=== PATIENT | female | born 1950 | race Caucasian/White ===

== ENCOUNTER 2018-03-09 19:43 | Inpatient (IN) | payer MEDICARE, OTHER ==
[2018-03-09 21:31] VITALS: BP 161/69
[2018-03-09] MEDS ORDERED: Magnesium Hydroxide (MOM) 30 mL UDC PO PRN (21:43)
[2018-03-09] MEDS ORDERED: Maalox 30 mL Cup PO PRN (21:43)
[2018-03-10] MEDS: Multivitamin Tab PO SCH (13:41)
--- NOTE | 2018-03-10 22:34 | History & Physical ---
ADMIT DATE: 03/09/2018 HISTORY OF PRESENT ILLNESS: The patient is a 68-year-old female with long history of hypertension, COPD, dementia, psychosis, admitted to [facility] under Dr. Yepez's service. The patient denies any chest pain, shortness of breath, nausea, vomiting, fever or chills. PAST MEDICAL HISTORY: Significant for hypertension, COPD, degenerative joint disease, dementia. PAST SURGICAL HISTORY: No recent surgery. ALLERGIES: None. MEDICATIONS: Follow admission reconciliation. SOCIAL HISTORY: Chronic smoker. No alcohol or drugs. FAMILY HISTORY: Noncontributory. REVIEW OF SYSTEMS: RENAL SYSTEM: No history of chronic renal disorder. CARDIOVASCULAR SYSTEM: No coronary artery disease. She has history of hypertension. ENDOCRINE SYSTEM: No diabetes or thyroid problem. GASTROINTESTINAL SYSTEM: No upper or lower GI bleed. NEUROLOGICAL SYSTEM: No seizure disorder. MUSCULOSKELETAL: No muscular dystrophy. HEMATOLOGIC SYSTEM: No bleeding tendencies. RESPIRATORY SYSTEM: She has history of COPD. GENITOURINARY SYSTEM: No dysuria or hematuria. PHYSICAL EXAMINATION: GENERAL: She is awake, alert, confused. VITAL SIGNS: Temperature 97.4, heart rate 87, blood pressure 119/77. HEENT: Normocephalic. Pupils reactive to light and accommodation. Sclerae clear. NECK: Supple. Negative for lymphadenopathy, JVD or bruit. CHEST: Entry of air bilaterally diminished throughout. HEART: S1, S2 normal. ABDOMEN: Soft, bowel sounds positive. EXTREMITIES: No edema. NEUROLOGICAL: She is awake, alert, not coherent. She has no focal motor or sensory deficits. Cranial nerves 2-12 are intact. ASSESSMENT: 1. Hypertension. 2. Chronic obstructive pulmonary disease. 3. Degenerative joint disease. 4. Dementia. 5. Psychosis. PLAN: The patient in the hospital under Dr. Yepez's service. Medical problems addressed during hospitalization psychosis. Medical problems addressed at discharge COPD and hypertension. The patient is medically stable for activity. Thank you Dr. Yepez for asking me to see your patient. JOB# [id number]
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
--- NOTE | 2018-03-11 06:19 | Psychiatric Evaluation ---
DATE OF SERVICE: 03/09/2018 IDENTIFYING DATA: The patient is a 68-year-old woman admitted from [facility] in view of her psychosis. CHIEF COMPLAINT: "I cannot talk much about it now, I am tired." HISTORY OF PRESENT ILLNESS: This is the first psychiatric hospitalization to [facility] for this 68-year-old woman, who is reported to have been diagnosed to have schizophrenia, chronic paranoid type. The patient is reported to be very resistive to care and has been brought by the paramedics. The patient is reported to have been refused to get into her room and has been wandering on the unit. The patient is extremely paranoid at this time. The patient's coping skills at this time are noted to be poor. Sleep and appetite are also noted to be very poor. Review of the chart indicated that the patient has been on Zyprexa, complains of the pain medication is noted to be questionable. PAST PSYCHIATRIC HISTORY: Details are not known. MEDICAL HISTORY: Physical examination is requested to be done by Dr. Larios. SUBSTANCE ABUSE HISTORY: None. PHYSICAL OR SEXUAL ABUSE HISTORY: None. LEGAL PROBLEMS: None at this time. STRENGTH AND ASSETS: The patient is motivated. MENTAL STATUS EXAMINATION: The patient is a 68-year-old woman looking her stated age, superficially cooperative. Eye contact is poor. Mood is noted to be irritable. Affect is constricted. Insight and judgment at this time are noted to be very much impaired. Impulse control seems to be poor. Coping skills are also noted to be very poor. The patient has been having difficult time to cope with the stress. The patient is paranoid and then pacing most of the time. The patient is denying any command hallucinations. The patient's behavior is a danger to self at this time and the patient is gravely disabled. DIAGNOSTIC IMPRESSION: AXIS I: Schizophrenia, chronic paranoid type. AXIS II: None. AXIS III: As per Dr. Larios. IMMEDIATE TREATMENT PLAN: The patient is going to be observed on the inpatient unit, provided with supportive psychotherapy. Once stabilized, the patient is going to be discharged to [facility] to be followed up on an outpatient basis. JOB# [id number]
[2018-03-11] MEDS: Multivitamin Tab PO SCH (09:16)
--- NOTE | 2018-03-11 09:48 | General Progress Note ---
Subjective - Review of Systems Service Date: 03/11/18 Subjective: sitting comfortably in chair confused no distress Objective - Physical Exam Vitals and I&O: Vital Signs Temp 98.4 F 03/11/18 06:05 Pulse 84 03/11/18 06:05 Resp 18 03/11/18 06:05 BP 141/79 03/11/18 06:05 Pulse Ox 93 03/11/18 06:05 Intake & Output 03/10/18 03/11/18 03/11/18 18:59 06:59 18:59 Intake Total 960 Balance 960 Intake: Oral 960 Other: # Voids 3 # Bowel Movements 1 Active Medications: Current Medications Acetaminophen (Tylenol) 650 mg PO Q4HR PRN PRN Reason: Mild Pain / Temp above 100 Stop: 05/08/18 21:42 Al Hydrox/Mg Hydrox/Simethicone (Maalox) 30 ml PO Q4HR PRN PRN Reason: GI DISTRESS Stop: 05/08/18 21:42 Donepezil HCl (Aricept) 5 mg PO DAILY SVETLANA Stop: 05/11/18 08:59 Lisinopril (Zestril) 10 mg PO DAILY SVETLANA Stop: 05/09/18 10:59 Last Admin: 03/10/18 13:41 Dose: Not Given Lorazepam (Ativan) 0.5 mg PO Q4H PRN; Protocol PRN Reason: Anxiety Stop: 05/08/18 21:42 Magnesium Hydroxide (Milk Of Magnesia) 30 ml PO HS PRN PRN Reason: Constipation Memantine (Namenda) 5 mg PO BID SVETLANA Stop: 05/10/18 16:59 Multivitamins/Vitamin C (Theragran) 1 tab PO DAILY SVETLANA Stop: 05/09/18 08:59 Last Admin: 03/10/18 13:41 Dose: Not Given Olanzapine (Zyprexa) 5 mg PO HS SVETLANA; Protocol Stop: 05/10/18 20:59 Zolpidem Tartrate (Ambien) 5 mg PO HS PRN PRN Reason: Insomnia Stop: 05/08/18 21:42 General: No acute distress HEENT: Atraumatic, PERRLA Neck: Supple, JVD Cardiovascular: Regular rate, Normal S1, Normal S2 Lungs: Clear to auscultation Abdomen: Bowel sounds, Soft Assessment/Plan - Assessment Assessment: dementia HTN COPD DJD - Plan Plan: continue current treatment Nutritional Asmnt/Malnutr-PDOC - Dietary Evaluation Malnutrition Findings (Please click <Entered> for more info): Nutritional Asmnt/Malnutrition Start: 03/10/18 14: 37 Text: Status: Complete Freq: Protocol: Document 03/10/18 14:38 JANUSZ (Rec: 03/10/18 14:49 [email or web address]) Nutritional Asmnt/Malnutrition Patient General Information Nutritional Screening High Risk Diagnosis psychosis Pertinent Medical Hx/Surgical Hx No H&P available as of now. Per nursing note, pt has history of bipolar disorder, ETOH abuse, smoker, HTN Subjective Information Pt standing in hallway at time of visit. Pt was alert and oriented; states she dislikes carbonated or diet beverages. No PO intake noted at this time; pt states she only ate a small amount of breakfast today. BMI 15.4 noted. Current Diet Order/ Nutrition Support regular Pertinent Medications maalox, MOM, theragran Pertinent Labs no current lab results Nutritional Hx/Data Height 1.55 m Height (Calculated Centimeters) 154.9 Current Weight (lbs) 36.922 kg Weight (Calculated Kilograms) 36.9 Weight (Calculated Grams) 35224.4 [place] Body Weight 105 lb Body Mass Index (BMI) 15.3 Weight Status Underweight GI Symptoms GI Symptoms None Last BM none noted Difficult in: None Food Allergies No Skin Integrity/Comment: cata, sheri 20 Estimated Nutritional Goals BEE in Kcals: Using Current wt Calories/Kcals/Kg 30-35 Kcals Calculated 6248-9350 Protein: Using Current wt Protein g/k.2-1.4 Protein Calculated 44-52g Fluid: ml 5024-3773 (1 ml/kcal) Nutritional Problem 1. Problem Problem Underweight Etiology possible poor PO intake Signs/Symptoms: BMI 15.4 Intervention/Recommendation Comments 1. Continue with regular diet as ordered. 2. If PO intake <75%, consider adding nutrition supplement for added kcals 2. Monitor PO intake, wt, labs and skin integrity 3. F/U as moderate risk in 3-5 days, 03/13-03/15; PO check 03/13 Expected Outcomes/Goals Expected Outcomes/Goals 1. PO intake to meet at least 75% of nutritional needs 2. Wt gain or stability, skin to remain intact, and nutrition related labs to approach normal limits Rosalinewed by Tatyana Stone RD
--- NOTE | 2018-03-11 21:39 | Progress Notes ---
DATE: 03/11/2018 SUBJECTIVE: Staff was spoken to. The patient is interviewed. Mood is noted to be irritable. Affect is constricted. The patient is paranoid and is going on a tangent. The patient's insight and judgment at this time are noted to be still impaired. Impulse control is noted to be poor. Coping skills are also noted to be very poor. The patient has been having difficult time to cope with the stress. The patient is pacing most of the time on the unit. When asked what happened for her to be brought to [facility], she is stating that there has been a Halloween libertarian that is going on and that is the reason why she has been brought over there. ASSESSMENT: The patient is grossly psychotic and impulsive and is not ready to be discharged to a lower level of care. PLAN: To start the Aricept and Namenda along with the Zyprexa and follow the patient with the supportive therapy. Please note that the patient is not ready to be discharged to a lower level of care yet. JOB# [id number]
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
[2018-03-12] MEDS: Multivitamin Tab PO SCH (09:16)
--- NOTE | 2018-03-12 11:27 | Progress Notes ---
DATE: 03/12/2018 PSYCHIATRIC PROGRESS NOTE PROGRESS ON THE UNIT: Staff was spoken to. The patient is interviewed. Mood is noted to be irritable. Affect is constricted. The patient is going on a tangent. The patient is stating that she should not be on any medications. The patient has been placed on 5 mg of olanzapine. The patient is pacing on the unit. The patient's short-term and long-term memory are noted to be impaired. ASSESSMENT: The patient is still psychotic. PLAN: To continue the patient with current medications. I encouraged the patient to verbalize the concerns rather than to act out. JOB# [id number]
--- NOTE | 2018-03-12 18:38 | General Progress Note ---
Subjective - Review of Systems Service Date: 03/12/18 Subjective: sitting comfortably in chair confused no distress Objective - Physical Exam Vitals and I&O: Vital Signs Temp 97.8 F 03/12/18 14:00 Pulse 91 03/12/18 14:00 Resp 20 03/12/18 14:00 BP 119/87 03/12/18 14:00 Pulse Ox 97 03/12/18 14:00 Intake & Output 03/11/18 03/12/18 03/12/18 18:59 06:59 18:59 Intake Total 950 950 Balance 950 950 Intake: Oral 950 950 Other: # Voids 4 3 3 # Bowel Movements 0 0 0 Active Medications: Current Medications Acetaminophen (Tylenol) 650 mg PO Q4HR PRN PRN Reason: Mild Pain / Temp above 100 Stop: 05/08/18 21:42 Al Hydrox/Mg Hydrox/Simethicone (Maalox) 30 ml PO Q4HR PRN PRN Reason: GI DISTRESS Stop: 05/08/18 21:42 Donepezil HCl (Aricept) 5 mg PO DAILY [facility] Stop: 05/11/18 08:59 Last Admin: 03/12/18 09:16 Dose: Not Given Lisinopril (Zestril) 10 mg PO DAILY SVETLANA Stop: 05/09/18 10:59 Last Admin: 03/12/18 09:16 Dose: Not Given Lorazepam (Ativan) 0.5 mg PO Q4H PRN; Protocol PRN Reason: Anxiety Stop: 05/08/18 21:42 Magnesium Hydroxide (Milk Of Magnesia) 30 ml PO HS PRN PRN Reason: Constipation Memantine (Namenda) 5 mg PO BID SVETLANA Stop: 05/10/18 16:59 Last Admin: 03/12/18 16:39 Dose: Not Given Multivitamins/Vitamin C (Theragran) 1 tab PO DAILY SVETLANA Stop: 05/09/18 08:59 Last Admin: 03/12/18 09:16 Dose: Not Given Olanzapine (Zyprexa) 5 mg PO HS SVETLANA; Protocol Stop: 05/10/18 20:59 Last Admin: 03/11/18 21:06 Dose: Not Given Zolpidem Tartrate (Ambien) 5 mg PO HS PRN PRN Reason: Insomnia Stop: 05/08/18 21:42 General: No acute distress HEENT: Atraumatic, PERRLA Neck: Supple, JVD Cardiovascular: Regular rate, Normal S1, Normal S2 Lungs: Clear to auscultation Abdomen: Bowel sounds, Soft Assessment/Plan - Assessment Assessment: dementia HTN COPD DJD - Plan Plan: continue current treatment Nutritional Asmnt/Malnutr-PDOC - Dietary Evaluation Malnutrition Findings (Please click <Entered> for more info): Nutritional Asmnt/Malnutrition Start: 03/10/18 14: 37 Text: Status: Complete Freq: Protocol: Document 03/10/18 14:38 JANUSZ (Rec: 03/10/18 14:49 [email or web address]) Nutritional Asmnt/Malnutrition Patient General Information Nutritional Screening High Risk Diagnosis psychosis Pertinent Medical Hx/Surgical Hx No H&P available as of now. Per nursing note, pt has history of bipolar disorder, ETOH abuse, smoker, HTN Subjective Information Pt standing in hallway at time of visit. Pt was alert and oriented; states she dislikes carbonated or diet beverages. No PO intake noted at this time; pt states she only ate a small amount of breakfast today. BMI 15.4 noted. Current Diet Order/ Nutrition Support regular Pertinent Medications maalox, MOM, theragran Pertinent Labs no current lab results Nutritional Hx/Data Height 1.55 m Height (Calculated Centimeters) 154.9 Current Weight (lbs) 36.922 kg Weight (Calculated Kilograms) 36.9 Weight (Calculated Grams) 90173.4 [place] Body Weight 105 lb Body Mass Index (BMI) 15.3 Weight Status Underweight GI Symptoms GI Symptoms None Last BM none noted Difficult in: None Food Allergies No Skin Integrity/Comment: sheri ivy Estimated Nutritional Goals BEE in Kcals: Using Current wt Calories/Kcals/Kg 30-35 Kcals Calculated 7185-1871 Protein: Using Current wt Protein g/k.2-1.4 Protein Calculated 44-52g Fluid: ml 1730-7795 (1 ml/kcal) Nutritional Problem 1. Problem Problem Underweight Etiology possible poor PO intake Signs/Symptoms: BMI 15.4 Intervention/Recommendation Comments 1. Continue with regular diet as ordered. 2. If PO intake <75%, consider adding nutrition supplement for added kcals 2. Monitor PO intake, wt, labs and skin integrity 3. F/U as moderate risk in 3-5 days, 03/13-03/15; PO check 03/13 Expected Outcomes/Goals Expected Outcomes/Goals 1. PO intake to meet at least 75% of nutritional needs 2. Wt gain or stability, skin to remain intact, and nutrition related labs to approach normal limits Reiewed by Tatyana Stone RD
[2018-03-13] MEDS: Multivitamin Tab PO SCH (09:33)
--- NOTE | 2018-03-13 19:31 | Internal Medicine Prog Note ---
Internal Medicine Subjective - Subjective Service Date: 03/13/18 Patient seen and examined:: with staff Patient is:: awake, verbal, in bed, talking Per staff patient has:: no adverse event Internal Medicine Objective - Physical Exam Vitals and I&O: Vital Signs Temp 98.2 F 03/13/18 14:00 Pulse 71 03/13/18 14:00 Resp 20 03/13/18 14:00 BP 159/71 03/13/18 14:00 Pulse Ox 97 03/13/18 14:00 Intake & Output 03/13/18 03/13/18 03/14/18 06:59 18:59 06:59 Intake Total 240 800 Balance 240 800 Intake: Oral 240 800 Other: # Voids 1 3 # Bowel Movements 1 Active Medications: Current Medications Acetaminophen (Tylenol) 650 mg PO Q4HR PRN PRN Reason: Mild Pain / Temp above 100 Stop: 05/08/18 21:42 Al Hydrox/Mg Hydrox/Simethicone (Maalox) 30 ml PO Q4HR PRN PRN Reason: GI DISTRESS Stop: 05/08/18 21:42 Donepezil HCl (Aricept) 5 mg PO DAILY SVETLANA Stop: 05/11/18 08:59 Last Admin: 03/13/18 09:32 Dose: Not Given Lisinopril (Zestril) 10 mg PO DAILY SVETLANA Stop: 05/09/18 10:59 Last Admin: 03/13/18 09:32 Dose: Not Given Lorazepam (Ativan) 0.5 mg PO Q4H PRN; Protocol PRN Reason: Anxiety Stop: 05/08/18 21:42 Magnesium Hydroxide (Milk Of Magnesia) 30 ml PO HS PRN PRN Reason: Constipation Memantine (Namenda) 5 mg PO BID SVETLANA Stop: 05/10/18 16:59 Last Admin: 03/13/18 16:24 Dose: Not Given Multivitamins/Vitamin C (Theragran) 1 tab PO DAILY SVETLANA Stop: 05/09/18 08:59 Last Admin: 03/13/18 09:33 Dose: Not Given Olanzapine (Zyprexa) 5 mg PO HS SVETLANA; Protocol Stop: 05/10/18 20:59 Last Admin: 03/12/18 20:57 Dose: Not Given Zolpidem Tartrate (Ambien) 5 mg PO HS PRN PRN Reason: Insomnia Stop: 05/08/18 21:42 General: demented HEENT: NC/AT, PERRLA, EOMI, anicteric sclerae, throat clear Neck: Supple, No JVD, No thyromegaly, +2 carotid pulse wo bruit, No LAD Lungs: CTAB Cardiovascular: RRR, Normal S1, Normal S2, without murmur Abdomen: soft, non-tender, non-distended Extremities: clear Neurological: no change Internal Medicine Assmt/Plan - Assessment Assessment: 1.HTN. 2.COPD. 3.DJD. 4.DEMENTIA 5.PSYCHOSIS. - Plan Plan: CONTINUE ON CURRENT MEDICATION AND DIET. Nutritional Asmnt/Malnutr-PDOC - Dietary Evaluation Malnutrition Findings (Please click <Entered> for more info): Nutritional Asmnt/Malnutrition Start: 03/10/18 14: 37 Text: Status: Complete Freq: Protocol: Document 03/10/18 14:38 JANUSZ (Rec: 03/10/18 14:49 [email or web address]) Nutritional Asmnt/Malnutrition Patient General Information Nutritional Screening High Risk Diagnosis psychosis Pertinent Medical Hx/Surgical Hx No H&P available as of now. Per nursing note, pt has history of bipolar disorder, ETOH abuse, smoker, HTN Subjective Information Pt standing in hallway at time of visit. Pt was alert and oriented; states she dislikes carbonated or diet beverages. No PO intake noted at this time; pt states she only ate a small amount of breakfast today. BMI 15.4 noted. Current Diet Order/ Nutrition Support regular Pertinent Medications maalox, MOM, theragran Pertinent Labs no current lab results Nutritional Hx/Data Height 1.55 m Height (Calculated Centimeters) 154.9 Current Weight (lbs) 36.922 kg Weight (Calculated Kilograms) 36.9 Weight (Calculated Grams) 48114.4 [place] Body Weight 105 lb Body Mass Index (BMI) 15.3 Weight Status Underweight GI Symptoms GI Symptoms None Last BM none noted Difficult in: None Food Allergies No Skin Integrity/Comment: sheri ivy 20 Estimated Nutritional Goals BEE in Kcals: Using Current wt Calories/Kcals/Kg 30-35 Kcals Calculated 0166-0232 Protein: Using Current wt Protein g/k.2-1.4 Protein Calculated 44-52g Fluid: ml 0703-9934 (1 ml/kcal) Nutritional Problem 1. Problem Problem Underweight Etiology possible poor PO intake Signs/Symptoms: BMI 15.4 Intervention/Recommendation Comments 1. Continue with regular diet as ordered. 2. If PO intake <75%, consider adding nutrition supplement for added kcals 2. Monitor PO intake, wt, labs and skin integrity 3. F/U as moderate risk in 3-5 days, 03/13-03/15; PO check 03/13 Expected Outcomes/Goals Expected Outcomes/Goals 1. PO intake to meet at least 75% of nutritional needs 2. Wt gain or stability, skin to remain intact, and nutrition related labs to approach normal limits Reiewed by Tatyana Stone RD
--- NOTE | 2018-03-13 23:35 | Progress Notes ---
DATE: 03/13/2018 SUBJECTIVE: Staff was spoken to. The patient is interviewed. Mood is noted to be irritable. Affect is constricted. The patient has been displaying confabulation. The patient has not been able to provide detailed information where she is going to be staying if she were going to be discharged. When asked about any family members, the patient is reporting that she has many family members, but she cannot get their names and the patient has been demented and paranoid and gravely disabled. PLAN: To continue the patient on the current medications and followup. JOB# [id number]
[2018-03-14] MEDS: Multivitamin Tab PO SCH (09:17)
--- NOTE | 2018-03-14 22:16 | Internal Medicine Prog Note ---
Internal Medicine Subjective - Subjective Service Date: 03/14/18 Patient seen and examined:: with staff Patient is:: awake, verbal, in bed, talking Per staff patient has:: no adverse event Internal Medicine Objective - Physical Exam Vitals and I&O: Vital Signs Temp 0 F 03/14/18 20:23 Pulse 70 03/14/18 14:00 Resp 18 03/14/18 14:00 BP 135/86 03/14/18 14:00 Pulse Ox 97 03/14/18 14:00 Intake & Output 03/14/18 03/14/18 03/15/18 06:59 18:59 06:59 Intake Total 180 800 120 Balance 180 800 120 Intake: Oral 180 800 120 Other: # Voids 3 3 3 # Bowel Movements 0 1 0 Active Medications: Current Medications Acetaminophen (Tylenol) 650 mg PO Q4HR PRN PRN Reason: Mild Pain / Temp above 100 Stop: 05/08/18 21:42 Al Hydrox/Mg Hydrox/Simethicone (Maalox) 30 ml PO Q4HR PRN PRN Reason: GI DISTRESS Stop: 05/08/18 21:42 Donepezil HCl (Aricept) 5 mg PO DAILY SVETLANA Stop: 05/11/18 08:59 Last Admin: 03/14/18 09:16 Dose: Not Given Lisinopril (Zestril) 10 mg PO DAILY SVETLANA Stop: 05/09/18 10:59 Last Admin: 03/14/18 09:16 Dose: Not Given Lorazepam (Ativan) 0.5 mg PO Q4H PRN; Protocol PRN Reason: Anxiety Stop: 05/08/18 21:42 Magnesium Hydroxide (Milk Of Magnesia) 30 ml PO HS PRN PRN Reason: Constipation Memantine (Namenda) 5 mg PO BID SVETLANA Stop: 05/10/18 16:59 Last Admin: 03/14/18 17:18 Dose: Not Given Multivitamins/Vitamin C (Theragran) 1 tab PO DAILY SVETLANA Stop: 05/09/18 08:59 Last Admin: 03/14/18 09:17 Dose: Not Given Olanzapine (Zyprexa) 5 mg PO HS SVETLANA; Protocol Stop: 05/10/18 20:59 Last Admin: 03/14/18 20:55 Dose: Not Given Zolpidem Tartrate (Ambien) 5 mg PO HS PRN PRN Reason: Insomnia Stop: 05/08/18 21:42 General: demented HEENT: NC/AT, PERRLA, EOMI, anicteric sclerae, throat clear Neck: Supple, No JVD, No thyromegaly, +2 carotid pulse wo bruit, No LAD Lungs: CTAB Cardiovascular: RRR, Normal S1, Normal S2, without murmur Abdomen: soft, non-tender, non-distended Extremities: clear Neurological: no change Internal Medicine Assmt/Plan - Assessment Assessment: 1.HTN. 2.COPD. 3.DJD. 4.DEMENTIA 5.PSYCHOSIS. - Plan Plan: CONTINUE ON CURRENT MEDICATION AND DIET. Nutritional Asmnt/Malnutr-PDOC - Dietary Evaluation Malnutrition Findings (Please click <Entered> for more info): Nutritional Asmnt/Malnutrition Start: 03/10/18 14: 37 Text: Status: Complete Freq: Protocol: Document 03/10/18 14:38 JANUSZ (Rec: 03/10/18 14:49 [email or web address]) Nutritional Asmnt/Malnutrition Patient General Information Nutritional Screening High Risk Diagnosis psychosis Pertinent Medical Hx/Surgical Hx No H&P available as of now. Per nursing note, pt has history of bipolar disorder, ETOH abuse, smoker, HTN Subjective Information Pt standing in hallway at time of visit. Pt was alert and oriented; states she dislikes carbonated or diet beverages. No PO intake noted at this time; pt states she only ate a small amount of breakfast today. BMI 15.4 noted. Current Diet Order/ Nutrition Support regular Pertinent Medications maalox, MOM, theragran Pertinent Labs no current lab results Nutritional Hx/Data Height 1.55 m Height (Calculated Centimeters) 154.9 Current Weight (lbs) 36.922 kg Weight (Calculated Kilograms) 36.9 Weight (Calculated Grams) 58519.4 [place] Body Weight 105 lb Body Mass Index (BMI) 15.3 Weight Status Underweight GI Symptoms GI Symptoms None Last BM none noted Difficult in: None Food Allergies No Skin Integrity/Comment: sheri ivy 20 Estimated Nutritional Goals BEE in Kcals: Using Current wt Calories/Kcals/Kg 30-35 Kcals Calculated 6969-9824 Protein: Using Current wt Protein g/k.2-1.4 Protein Calculated 44-52g Fluid: ml 6402-6520 (1 ml/kcal) Nutritional Problem 1. Problem Problem Underweight Etiology possible poor PO intake Signs/Symptoms: BMI 15.4 Intervention/Recommendation Comments 1. Continue with regular diet as ordered. 2. If PO intake <75%, consider adding nutrition supplement for added kcals 2. Monitor PO intake, wt, labs and skin integrity 3. F/U as moderate risk in 3-5 days, 03/13-03/15; PO check 03/13 Expected Outcomes/Goals Expected Outcomes/Goals 1. PO intake to meet at least 75% of nutritional needs 2. Wt gain or stability, skin to remain intact, and nutrition related labs to approach normal limits Reiewed by Tatyana Stone RD
--- NOTE | 2018-03-15 01:33 | Progress Notes ---
DATE: 03/14/2018 SUBJECTIVE: Staff was spoken to. The patient is interviewed. Mood is noted to be irritable. Affect is constricted. Insight and judgment are noted to be still impaired. Impulse control is noted to be limited. Coping skills are noted to be limited. The patient has been having difficult time to cope with the stress. ASSESSMENT: The patient is still paranoid and demented. PLAN: To continue the patient with the supportive therapy and work with the manager of case with regard to placement. JOB# [id number]
[2018-03-15] MEDS: Multivitamin Tab PO SCH (09:20)
--- NOTE | 2018-03-15 21:06 | Internal Medicine Prog Note ---
Internal Medicine Subjective - Subjective Service Date: 03/15/18 Patient seen and examined:: with staff Patient is:: awake, verbal, in bed, talking Per staff patient has:: no adverse event Internal Medicine Objective - Physical Exam Vitals and I&O: Vital Signs Temp 98.7 F 03/15/18 20:00 Pulse 93 03/15/18 20:00 Resp 19 03/15/18 20:00 BP 113/77 03/15/18 20:00 Pulse Ox 93 03/15/18 20:00 Intake & Output 03/15/18 03/15/18 03/16/18 06:59 18:59 06:59 Intake Total 120 1500 Balance 120 1500 Intake: Oral 120 1500 Other: # Voids 2 3 # Bowel Movements 0 0 Active Medications: Current Medications Acetaminophen (Tylenol) 650 mg PO Q4HR PRN PRN Reason: Mild Pain / Temp above 100 Stop: 05/08/18 21:42 Al Hydrox/Mg Hydrox/Simethicone (Maalox) 30 ml PO Q4HR PRN PRN Reason: GI DISTRESS Stop: 05/08/18 21:42 Donepezil HCl (Aricept) 5 mg PO DAILY SVETLANA Stop: 05/11/18 08:59 Last Admin: 03/15/18 09:20 Dose: Not Given Lisinopril (Zestril) 10 mg PO BID SVETLANA Stop: 05/14/18 09:59 Last Admin: 03/15/18 10:00 Dose: Not Given Lorazepam (Ativan) 0.5 mg PO Q4H PRN; Protocol PRN Reason: Anxiety Stop: 05/08/18 21:42 Magnesium Hydroxide (Milk Of Magnesia) 30 ml PO HS PRN PRN Reason: Constipation Memantine (Namenda) 5 mg PO BID SVETLANA Stop: 05/10/18 16:59 Last Admin: 03/15/18 09:20 Dose: Not Given Multivitamins/Vitamin C (Theragran) 1 tab PO DAILY SVETLANA Stop: 05/09/18 08:59 Last Admin: 03/15/18 09:20 Dose: Not Given Olanzapine (Zyprexa) 5 mg PO HS SVETLANA; Protocol Stop: 05/10/18 20:59 Last Admin: 03/14/18 20:55 Dose: Not Given Zolpidem Tartrate (Ambien) 5 mg PO HS PRN PRN Reason: Insomnia Stop: 05/08/18 21:42 General: demented HEENT: NC/AT, PERRLA, EOMI, anicteric sclerae, throat clear Neck: Supple, No JVD, No thyromegaly, +2 carotid pulse wo bruit, No LAD Lungs: CTAB Cardiovascular: RRR, Normal S1, Normal S2, without murmur Abdomen: soft, non-tender, non-distended Extremities: clear Neurological: no change Internal Medicine Assmt/Plan - Assessment Assessment: 1.HTN. 2.COPD. 3.DJD. 4.DEMENTIA 5.PSYCHOSIS. - Plan Plan: CONTINUE ON CURRENT MEDICATION AND DIET. Nutritional Asmnt/Malnutr-PDOC - Dietary Evaluation Malnutrition Findings (Please click <Entered> for more info): Nutritional Asmnt/Malnutrition Start: 03/10/18 14: 37 Text: Status: Complete Freq: Protocol: Document 03/10/18 14:38 JANUSZ (Rec: 03/10/18 14:49 JANUSZ [email or web address]) Nutritional Asmnt/Malnutrition Patient General Information Nutritional Screening High Risk Diagnosis psychosis Pertinent Medical Hx/Surgical Hx No H&P available as of now. Per nursing note, pt has history of bipolar disorder, ETOH abuse, smoker, HTN Subjective Information Pt standing in hallway at time of visit. Pt was alert and oriented; states she dislikes carbonated or diet beverages. No PO intake noted at this time; pt states she only ate a small amount of breakfast today. BMI 15.4 noted. Current Diet Order/ Nutrition Support regular Pertinent Medications maalox, MOM, theragran Pertinent Labs no current lab results Nutritional Hx/Data Height 1.55 m Height (Calculated Centimeters) 154.9 Current Weight (lbs) 36.922 kg Weight (Calculated Kilograms) 36.9 Weight (Calculated Grams) 05080.4 [place] Body Weight 105 lb Body Mass Index (BMI) 15.3 Weight Status Underweight GI Symptoms GI Symptoms None Last BM none noted Difficult in: None Food Allergies No Skin Integrity/Comment: sheri ivy 20 Estimated Nutritional Goals BEE in Kcals: Using Current wt Calories/Kcals/Kg 30-35 Kcals Calculated 3928-4656 Protein: Using Current wt Protein g/k.2-1.4 Protein Calculated 44-52g Fluid: ml 6654-9808 (1 ml/kcal) Nutritional Problem 1. Problem Problem Underweight Etiology possible poor PO intake Signs/Symptoms: BMI 15.4 Intervention/Recommendation Comments 1. Continue with regular diet as ordered. 2. If PO intake <75%, consider adding nutrition supplement for added kcals 2. Monitor PO intake, wt, labs and skin integrity 3. F/U as moderate risk in 3-5 days, 03/13-03/15; PO check 03/13 Expected Outcomes/Goals Expected Outcomes/Goals 1. PO intake to meet at least 75% of nutritional needs 2. Wt gain or stability, skin to remain intact, and nutrition related labs to approach normal limits Reiewed by Tatyana Stone RD
--- NOTE | 2018-03-16 01:17 | Progress Notes ---
DATE: 03/15/2018 PSYCHIATRIC PROGRESS NOTE SUBJECTIVE: Staff was spoken to. The patient is interviewed. Mood is noted to be irritable. Affect is constricted. Insight and judgment are noted to be still impaired. Impulse control is noted to be limited. Continues to be paranoid. The patient is going on a tangent. The patient has no insight into her illness. The patient is stating that she had not been on any medications. The patient is currently on 5 mg of olanzapine and is able to tolerate medication. ASSESSMENT: The patient is still demented and psychotic. PLAN: To continue the patient with supportive therapy and followup. JOB# [id number]
[2018-03-16] MEDS: Multivitamin Tab PO SCH (08:18)
--- NOTE | 2018-03-16 13:25 | Progress Notes ---
DATE: 03/16/2018 SUBJECTIVE: Staff was spoken to. The patient is interviewed. Mood is noted to be irritable. Affect is constricted. The patient has no clue that she does not have a place to return to, but the patient is still keep talking about that she has a place to return and the patient is going on a tangent and has been very confabulating. The patient at this time is closely monitored for any of the aggressive behavior and side effects to the medications and major case detective is working with the patient to look for placement. JOB# [id number]
--- NOTE | 2018-03-16 21:03 | Internal Medicine Prog Note ---
Internal Medicine Subjective - Subjective Service Date: 03/16/18 Patient seen and examined:: with staff Patient is:: awake, verbal, in bed, talking Per staff patient has:: no adverse event Internal Medicine Objective - Physical Exam Vitals and I&O: Vital Signs Temp 97.9 F 03/16/18 20:31 Pulse 73 03/16/18 20:31 Resp 20 03/16/18 20:31 BP 131/92 03/16/18 20:31 Pulse Ox 95 03/16/18 20:31 Intake & Output 03/16/18 03/16/18 03/17/18 06:59 18:59 06:59 Intake Total 120 960 480 Balance 120 960 480 Intake: Oral 120 960 480 Other: # Voids 3 3 2 # Bowel Movements 1 Active Medications: Current Medications Acetaminophen (Tylenol) 650 mg PO Q4HR PRN PRN Reason: Mild Pain / Temp above 100 Stop: 05/08/18 21:42 Al Hydrox/Mg Hydrox/Simethicone (Maalox) 30 ml PO Q4HR PRN PRN Reason: GI DISTRESS Stop: 05/08/18 21:42 Donepezil HCl (Aricept) 5 mg PO DAILY SVETLANA Stop: 05/11/18 08:59 Last Admin: 03/16/18 08:18 Dose: Not Given Lisinopril (Zestril) 10 mg PO BID SVETLANA Stop: 05/14/18 09:59 Last Admin: 03/16/18 16:34 Dose: Not Given Lorazepam (Ativan) 0.5 mg PO Q4H PRN; Protocol PRN Reason: Anxiety Stop: 05/08/18 21:42 Magnesium Hydroxide (Milk Of Magnesia) 30 ml PO HS PRN PRN Reason: Constipation Memantine (Namenda) 5 mg PO BID SVETLANA Stop: 05/10/18 16:59 Last Admin: 03/16/18 16:35 Dose: Not Given Multivitamins/Vitamin C (Theragran) 1 tab PO DAILY SVETLANA Stop: 05/09/18 08:59 Last Admin: 03/16/18 08:18 Dose: Not Given Olanzapine (Zyprexa) 5 mg PO HS SVETLANA; Protocol Stop: 05/10/18 20:59 Last Admin: 03/16/18 20:52 Dose: Not Given Zolpidem Tartrate (Ambien) 5 mg PO HS PRN PRN Reason: Insomnia Stop: 05/08/18 21:42 General: demented HEENT: NC/AT, PERRLA, EOMI, anicteric sclerae, throat clear Neck: Supple, No JVD, No thyromegaly, +2 carotid pulse wo bruit, No LAD Lungs: CTAB Cardiovascular: RRR, Normal S1, Normal S2, without murmur Abdomen: soft, non-tender, non-distended Extremities: clear Neurological: no change Internal Medicine Assmt/Plan - Assessment Assessment: 1.HTN. 2.COPD. 3.DJD. 4.DEMENTIA 5.PSYCHOSIS. - Plan Plan: CONTINUE ON CURRENT MEDICATION AND DIET. Nutritional Asmnt/Malnutr-PDOC - Dietary Evaluation Malnutrition Findings (Please click <Entered> for more info): Nutritional Asmnt/Malnutrition Start: 03/10/18 14: 37 Text: Status: Complete Freq: Protocol: Document 03/10/18 14:38 JANUSZ (Rec: 03/10/18 14:49 JANUSZ [email or web address]) Nutritional Asmnt/Malnutrition Patient General Information Nutritional Screening High Risk Diagnosis psychosis Pertinent Medical Hx/Surgical Hx No H&P available as of now. Per nursing note, pt has history of bipolar disorder, ETOH abuse, smoker, HTN Subjective Information Pt standing in hallway at time of visit. Pt was alert and oriented; states she dislikes carbonated or diet beverages. No PO intake noted at this time; pt states she only ate a small amount of breakfast today. BMI 15.4 noted. Current Diet Order/ Nutrition Support regular Pertinent Medications maalox, MOM, theragran Pertinent Labs no current lab results Nutritional Hx/Data Height 1.55 m Height (Calculated Centimeters) 154.9 Current Weight (lbs) 36.922 kg Weight (Calculated Kilograms) 36.9 Weight (Calculated Grams) 95605.4 [place] Body Weight 105 lb Body Mass Index (BMI) 15.3 Weight Status Underweight GI Symptoms GI Symptoms None Last BM none noted Difficult in: None Food Allergies No Skin Integrity/Comment: cata, sheri 20 Estimated Nutritional Goals BEE in Kcals: Using Current wt Calories/Kcals/Kg 30-35 Kcals Calculated 7844-5590 Protein: Using Current wt Protein g/k.2-1.4 Protein Calculated 44-52g Fluid: ml 3442-8703 (1 ml/kcal) Nutritional Problem 1. Problem Problem Underweight Etiology possible poor PO intake Signs/Symptoms: BMI 15.4 Intervention/Recommendation Comments 1. Continue with regular diet as ordered. 2. If PO intake <75%, consider adding nutrition supplement for added kcals 2. Monitor PO intake, wt, labs and skin integrity 3. F/U as moderate risk in 3-5 days, 03/13-03/15; PO check 03/13 Expected Outcomes/Goals Expected Outcomes/Goals 1. PO intake to meet at least 75% of nutritional needs 2. Wt gain or stability, skin to remain intact, and nutrition related labs to approach normal limits Reiewed by Tatyana Stone RD
[2018-03-17] MEDS: Multivitamin Tab PO SCH (08:52)
--- NOTE | 2018-03-17 21:01 | Progress Notes ---
DATE: 03/17/2018 PSYCHIATRIC PROGRESS NOTE SUBJECTIVE: Staff was spoken to. The patient is interviewed. Mood is noted to be irritable. Affect is constricted. Coping skills at this time are noted to be improving. No side effects are noted, but the patient has been very reluctant to comply with the medication. The patient has no place to return to, but still the patient is insisting that she has a place and she needs to go there. The pillowcase cleaner has been trying to work with the APS worker and the family to see if the patient can be relocated to a facility close to the family members. JOB# [id number]
--- NOTE | 2018-03-17 22:21 | Internal Medicine Prog Note ---
Internal Medicine Subjective - Subjective Service Date: 03/17/18 Patient seen and examined:: with staff Patient is:: awake, verbal, in bed, talking Per staff patient has:: no adverse event Internal Medicine Objective - Physical Exam Vitals and I&O: Vital Signs Temp 98.3 F 03/17/18 20:47 Pulse 76 03/17/18 20:47 Resp 21 03/17/18 20:47 BP 142/80 03/17/18 20:47 Pulse Ox 96 03/17/18 20:47 Intake & Output 03/17/18 03/17/18 03/18/18 06:59 18:59 06:59 Intake Total 480 1840 Balance 480 1840 Intake: Oral 480 1840 Other: # Voids 2 3 # Bowel Movements 0 Stool Characteristics Formed Active Medications: Current Medications Acetaminophen (Tylenol) 650 mg PO Q4HR PRN PRN Reason: Mild Pain / Temp above 100 Stop: 05/08/18 21:42 Al Hydrox/Mg Hydrox/Simethicone (Maalox) 30 ml PO Q4HR PRN PRN Reason: GI DISTRESS Stop: 05/08/18 21:42 Donepezil HCl (Aricept) 5 mg PO DAILY SVETLANA Stop: 05/11/18 08:59 Last Admin: 03/17/18 08:51 Dose: Not Given Lisinopril (Zestril) 10 mg PO BID SVETLANA Stop: 05/14/18 09:59 Last Admin: 03/17/18 17:48 Dose: Not Given Lorazepam (Ativan) 0.5 mg PO Q4H PRN; Protocol PRN Reason: Anxiety Stop: 05/08/18 21:42 Magnesium Hydroxide (Milk Of Magnesia) 30 ml PO HS PRN PRN Reason: Constipation Memantine (Namenda) 5 mg PO BID SVETLANA Stop: 05/10/18 16:59 Last Admin: 03/17/18 17:48 Dose: Not Given Multivitamins/Vitamin C (Theragran) 1 tab PO DAILY SVETLANA Stop: 05/09/18 08:59 Last Admin: 03/17/18 08:52 Dose: Not Given Olanzapine (Zyprexa) 5 mg PO HS SVETLANA; Protocol Stop: 05/10/18 20:59 Last Admin: 03/17/18 20:23 Dose: Not Given Zolpidem Tartrate (Ambien) 5 mg PO HS PRN PRN Reason: Insomnia Stop: 05/08/18 21:42 General: demented HEENT: NC/AT, PERRLA, EOMI, anicteric sclerae, throat clear Neck: Supple, No JVD, No thyromegaly, +2 carotid pulse wo bruit, No LAD Lungs: CTAB Cardiovascular: RRR, Normal S1, Normal S2, without murmur Abdomen: soft, non-tender, non-distended Extremities: clear Neurological: no change Internal Medicine Assmt/Plan - Assessment Assessment: 1.HTN. 2.COPD. 3.DJD. 4.DEMENTIA 5.PSYCHOSIS. - Plan Plan: CONTINUE ON CURRENT MEDICATION AND DIET. Nutritional Asmnt/Malnutr-PDOC - Dietary Evaluation Malnutrition Findings (Please click <Entered> for more info): Nutritional Asmnt/Malnutrition Start: 03/10/18 14: 37 Text: Status: Complete Freq: Protocol: Document 03/10/18 14:38 JANUSZ (Rec: 03/10/18 14:49 [email or web address]) Nutritional Asmnt/Malnutrition Patient General Information Nutritional Screening High Risk Diagnosis psychosis Pertinent Medical Hx/Surgical Hx No H&P available as of now. Per nursing note, pt has history of bipolar disorder, ETOH abuse, smoker, HTN Subjective Information Pt standing in hallway at time of visit. Pt was alert and oriented; states she dislikes carbonated or diet beverages. No PO intake noted at this time; pt states she only ate a small amount of breakfast today. BMI 15.4 noted. Current Diet Order/ Nutrition Support regular Pertinent Medications maalox, MOM, theragran Pertinent Labs no current lab results Nutritional Hx/Data Height 1.55 m Height (Calculated Centimeters) 154.9 Current Weight (lbs) 36.922 kg Weight (Calculated Kilograms) 36.9 Weight (Calculated Grams) 64520.4 [place] Body Weight 105 lb Body Mass Index (BMI) 15.3 Weight Status Underweight GI Symptoms GI Symptoms None Last BM none noted Difficult in: None Food Allergies No Skin Integrity/Comment: cata, sheri 20 Estimated Nutritional Goals BEE in Kcals: Using Current wt Calories/Kcals/Kg 30-35 Kcals Calculated 6993-8406 Protein: Using Current wt Protein g/k.2-1.4 Protein Calculated 44-52g Fluid: ml 3560-8483 (1 ml/kcal) Nutritional Problem 1. Problem Problem Underweight Etiology possible poor PO intake Signs/Symptoms: BMI 15.4 Intervention/Recommendation Comments 1. Continue with regular diet as ordered. 2. If PO intake <75%, consider adding nutrition supplement for added kcals 2. Monitor PO intake, wt, labs and skin integrity 3. F/U as moderate risk in 3-5 days, 03/13-03/15; PO check 03/13 Expected Outcomes/Goals Expected Outcomes/Goals 1. PO intake to meet at least 75% of nutritional needs 2. Wt gain or stability, skin to remain intact, and nutrition related labs to approach normal limits Reiewed by Tatyana Stone RD
[2018-03-18] MEDS: Multivitamin Tab PO SCH (08:52)
--- NOTE | 2018-03-18 22:59 | Internal Medicine Prog Note ---
Internal Medicine Subjective - Subjective Service Date: 03/18/18 Patient seen and examined:: with staff Patient is:: awake, verbal, in bed, talking Per staff patient has:: no adverse event Internal Medicine Objective - Physical Exam Vitals and I&O: Vital Signs Temp 97.9 F 03/18/18 20:56 Pulse 82 03/18/18 20:56 Resp 18 03/18/18 20:56 BP 143/86 03/18/18 20:56 Pulse Ox 96 03/18/18 20:56 Intake & Output 03/18/18 03/18/18 03/19/18 06:59 18:59 06:59 Intake Total 900 Balance 900 Intake: Oral 900 Other: # Voids 3 # Bowel Movements 1 Stool Characteristics Formed Formed Brown Active Medications: Current Medications Acetaminophen (Tylenol) 650 mg PO Q4HR PRN PRN Reason: Mild Pain / Temp above 100 Stop: 05/08/18 21:42 Al Hydrox/Mg Hydrox/Simethicone (Maalox) 30 ml PO Q4HR PRN PRN Reason: GI DISTRESS Stop: 05/08/18 21:42 Donepezil HCl (Aricept) 5 mg PO DAILY SVETLANA Stop: 05/11/18 08:59 Last Admin: 03/18/18 08:52 Dose: Not Given Lisinopril (Zestril) 10 mg PO BID SVETLANA Stop: 05/14/18 09:59 Last Admin: 03/18/18 16:15 Dose: Not Given Lorazepam (Ativan) 0.5 mg PO Q4H PRN; Protocol PRN Reason: Anxiety Stop: 05/08/18 21:42 Magnesium Hydroxide (Milk Of Magnesia) 30 ml PO HS PRN PRN Reason: Constipation Memantine (Namenda) 5 mg PO BID SVETLANA Stop: 05/10/18 16:59 Last Admin: 03/18/18 16:16 Dose: Not Given Multivitamins/Vitamin C (Theragran) 1 tab PO DAILY SVETLANA Stop: 05/09/18 08:59 Last Admin: 03/18/18 08:52 Dose: Not Given Olanzapine (Zyprexa) 5 mg PO HS SVETLANA; Protocol Stop: 05/10/18 20:59 Last Admin: 03/18/18 20:56 Dose: Not Given Zolpidem Tartrate (Ambien) 5 mg PO HS PRN PRN Reason: Insomnia Stop: 05/08/18 21:42 General: demented HEENT: NC/AT, PERRLA, EOMI, anicteric sclerae, throat clear Neck: Supple, No JVD, No thyromegaly, +2 carotid pulse wo bruit, No LAD Lungs: CTAB Cardiovascular: RRR, Normal S1, Normal S2, without murmur Abdomen: soft, non-tender, non-distended Extremities: clear Neurological: no change Internal Medicine Assmt/Plan - Assessment Assessment: 1.HTN. 2.COPD. 3.DJD. 4.DEMENTIA 5.PSYCHOSIS. - Plan Plan: CONTINUE ON CURRENT MEDICATION AND DIET. Nutritional Asmnt/Malnutr-PDOC - Dietary Evaluation Malnutrition Findings (Please click <Entered> for more info): Nutritional Asmnt/Malnutrition Start: 03/10/18 14: 37 Text: Status: Complete Freq: Protocol: Document 03/10/18 14:38 JANUSZ (Rec: 03/10/18 14:49 [email or web address]) Nutritional Asmnt/Malnutrition Patient General Information Nutritional Screening High Risk Diagnosis psychosis Pertinent Medical Hx/Surgical Hx No H&P available as of now. Per nursing note, pt has history of bipolar disorder, ETOH abuse, smoker, HTN Subjective Information Pt standing in hallway at time of visit. Pt was alert and oriented; states she dislikes carbonated or diet beverages. No PO intake noted at this time; pt states she only ate a small amount of breakfast today. BMI 15.4 noted. Current Diet Order/ Nutrition Support regular Pertinent Medications maalox, MOM, theragran Pertinent Labs no current lab results Nutritional Hx/Data Height 1.55 m Height (Calculated Centimeters) 154.9 Current Weight (lbs) 36.922 kg Weight (Calculated Kilograms) 36.9 Weight (Calculated Grams) 78060.4 [place] Body Weight 105 lb Body Mass Index (BMI) 15.3 Weight Status Underweight GI Symptoms GI Symptoms None Last BM none noted Difficult in: None Food Allergies No Skin Integrity/Comment: sheri ivy 20 Estimated Nutritional Goals BEE in Kcals: Using Current wt Calories/Kcals/Kg 30-35 Kcals Calculated 8886-1998 Protein: Using Current wt Protein g/k.2-1.4 Protein Calculated 44-52g Fluid: ml 1525-8231 (1 ml/kcal) Nutritional Problem 1. Problem Problem Underweight Etiology possible poor PO intake Signs/Symptoms: BMI 15.4 Intervention/Recommendation Comments 1. Continue with regular diet as ordered. 2. If PO intake <75%, consider adding nutrition supplement for added kcals 2. Monitor PO intake, wt, labs and skin integrity 3. F/U as moderate risk in 3-5 days, 03/13-03/15; PO check 03/13 Expected Outcomes/Goals Expected Outcomes/Goals 1. PO intake to meet at least 75% of nutritional needs 2. Wt gain or stability, skin to remain intact, and nutrition related labs to approach normal limits Reiewed by Tatyana Stone RD
--- NOTE | 2018-03-19 05:15 | Progress Notes ---
DATE: 03/18/2018 SUBJECTIVE: Staff was spoken to. The patient is interviewed. Mood is noted to be irritable. Affect is constricted. The patient is stating that there is no reason for her to be in here. The patient is stating that she needs to be out, she has her own place. The patient has been demented and has been having difficult time to cope with the stress. The patient has no place to return to. ASSESSMENT: The patient is still paranoid. PLAN: To continue the patient with the supportive therapy, encouraged the patient to verbalize the concerns rather than to act out. JOB# [id number]
[2018-03-19] MEDS: Multivitamin Tab PO SCH (08:10)
--- NOTE | 2018-03-19 20:32 | Internal Medicine Prog Note ---
Internal Medicine Subjective - Subjective Service Date: 03/19/18 Patient seen and examined:: with staff Patient is:: awake, verbal, in bed, talking Per staff patient has:: no adverse event Internal Medicine Objective - Physical Exam Vitals and I&O: Vital Signs Temp 97.6 F 03/19/18 16:09 Pulse 72 03/19/18 16:46 Resp 20 03/19/18 16:09 BP 117/70 03/19/18 16:46 Pulse Ox 96 03/19/18 16:09 Intake & Output 03/19/18 03/19/18 03/20/18 06:59 18:59 06:59 Intake Total 1400 Balance 1400 Intake: Oral 1400 Other: # Voids 4 # Bowel Movements 1 Stool Characteristics Formed Brown Active Medications: Current Medications Acetaminophen (Tylenol) 650 mg PO Q4HR PRN PRN Reason: Mild Pain / Temp above 100 Stop: 05/08/18 21:42 Al Hydrox/Mg Hydrox/Simethicone (Maalox) 30 ml PO Q4HR PRN PRN Reason: GI DISTRESS Stop: 05/08/18 21:42 Donepezil HCl (Aricept) 5 mg PO DAILY SVETLANA Stop: 05/11/18 08:59 Last Admin: 03/19/18 08:10 Dose: Not Given Lisinopril (Zestril) 10 mg PO BID SVETLANA Stop: 05/14/18 09:59 Last Admin: 03/19/18 16:46 Dose: Not Given Lorazepam (Ativan) 0.5 mg PO Q4H PRN; Protocol PRN Reason: Anxiety Stop: 05/08/18 21:42 Magnesium Hydroxide (Milk Of Magnesia) 30 ml PO HS PRN PRN Reason: Constipation Memantine (Namenda) 5 mg PO BID SVETLANA Stop: 05/10/18 16:59 Last Admin: 03/19/18 16:46 Dose: Not Given Multivitamins/Vitamin C (Theragran) 1 tab PO DAILY SVETLANA Stop: 05/09/18 08:59 Last Admin: 03/19/18 08:10 Dose: Not Given Olanzapine (Zyprexa) 5 mg PO HS SVETLANA; Protocol Stop: 05/10/18 20:59 Last Admin: 03/18/18 20:56 Dose: Not Given Zolpidem Tartrate (Ambien) 5 mg PO HS PRN PRN Reason: Insomnia Stop: 05/08/18 21:42 General: demented HEENT: NC/AT, PERRLA, EOMI, anicteric sclerae, throat clear Neck: Supple, No JVD, No thyromegaly, +2 carotid pulse wo bruit, No LAD Lungs: CTAB Cardiovascular: RRR, Normal S1, Normal S2, without murmur Abdomen: soft, non-tender, non-distended Extremities: clear Neurological: no change Internal Medicine Assmt/Plan - Assessment Assessment: 1.HTN. 2.COPD. 3.DJD. 4.DEMENTIA 5.PSYCHOSIS. - Plan Plan: CONTINUE ON CURRENT MEDICATION AND DIET. Nutritional Asmnt/Malnutr-PDOC - Dietary Evaluation Malnutrition Findings (Please click <Entered> for more info): Nutritional Asmnt/Malnutrition Start: 03/10/18 14: 37 Text: Status: Complete Freq: Protocol: Document 03/10/18 14:38 JANUSZ (Rec: 03/10/18 14:49 [email or web address]) Nutritional Asmnt/Malnutrition Patient General Information Nutritional Screening High Risk Diagnosis psychosis Pertinent Medical Hx/Surgical Hx No H&P available as of now. Per nursing note, pt has history of bipolar disorder, ETOH abuse, smoker, HTN Subjective Information Pt standing in hallway at time of visit. Pt was alert and oriented; states she dislikes carbonated or diet beverages. No PO intake noted at this time; pt states she only ate a small amount of breakfast today. BMI 15.4 noted. Current Diet Order/ Nutrition Support regular Pertinent Medications maalox, MOM, theragran Pertinent Labs no current lab results Nutritional Hx/Data Height 1.55 m Height (Calculated Centimeters) 154.9 Current Weight (lbs) 36.922 kg Weight (Calculated Kilograms) 36.9 Weight (Calculated Grams) 07689.4 [place] Body Weight 105 lb Body Mass Index (BMI) 15.3 Weight Status Underweight GI Symptoms GI Symptoms None Last BM none noted Difficult in: None Food Allergies No Skin Integrity/Comment: sheri ivy 20 Estimated Nutritional Goals BEE in Kcals: Using Current wt Calories/Kcals/Kg 30-35 Kcals Calculated 8881-6312 Protein: Using Current wt Protein g/k.2-1.4 Protein Calculated 44-52g Fluid: ml 5939-6170 (1 ml/kcal) Nutritional Problem 1. Problem Problem Underweight Etiology possible poor PO intake Signs/Symptoms: BMI 15.4 Intervention/Recommendation Comments 1. Continue with regular diet as ordered. 2. If PO intake <75%, consider adding nutrition supplement for added kcals 2. Monitor PO intake, wt, labs and skin integrity 3. F/U as moderate risk in 3-5 days, 03/13-03/15; PO check 03/13 Expected Outcomes/Goals Expected Outcomes/Goals 1. PO intake to meet at least 75% of nutritional needs 2. Wt gain or stability, skin to remain intact, and nutrition related labs to approach normal limits Reiewed by Tatyana Stone RD
--- NOTE | 2018-03-19 21:37 | Progress Notes ---
DATE: 03/19/2018 SUBJECTIVE: Staff was spoken to. The patient is interviewed. Mood is noted to be irritable. Affect is constricted. Insight and judgment are noted to be still impaired. Impulse control is noted to be poor. Coping skills are also noted to be very poor. The patient has been having difficult time to cope with the stress. ASSESSMENT: The patient is still demented and is awaiting placement. PLAN: To continue the patient with the supportive therapy and followup. JOB# [id number]
[2018-03-20] MEDS: Multivitamin Tab PO SCH (14:06)
--- NOTE | 2018-03-20 17:46 | Progress Notes ---
DATE: 03/20/2018 SUBJECTIVE: The staff was spoken to. The patient is interviewed. Mood is noted to be anxious. Affect is appropriate. Not suicidal or homicidal. Insight and judgment are improving. Impulse control seems to be fair. The patient has short-term memory deficits, but long-term memory seems to be fair. The patient denied hallucinations. The patient is willing to comply with the treatment. ASSESSMENT: The patient is stabilizing. PLAN: To discharge the patient today for followup on outpatient basis. JOB# [id number]
== END 2018-03-20 15:15 | DRG 885 ==
LOC: GERO 19:43
PROVIDERS: ADMIT Psychiatry & Neurology Psychiatry; ATTEND Psychiatry & Neurology Psychiatry
DX: F20.0 Paranoid schizophrenia (principal); I10 Essential (primary) hypertension; J44.9 Chronic obstructive pulmonary disease, unspecified; F03.90 Unspecified dementia, unspecified severity, without behavioral disturbance, psychotic disturbance, mood disturbance, and anxiety; F29 Unspecified psychosis not due to a substance or known physiological condition; M19.90 Unspecified osteoarthritis, unspecified site; R27.0 Ataxia, unspecified; G89.29 Other chronic pain; M54.9 Dorsalgia, unspecified; F17.210 Nicotine dependence, cigarettes, uncomplicated
CPT/HCPCS: 83036-90; 90899; G0410; J7051